=== PATIENT | female | born 1965 | race Caucasian/White ===

== ENCOUNTER 2018-01-03 15:39 | Outpatient (CLI) | payer BC ==
--- NOTE | 2018-01-13 19:14 | Mammography Report ---
DIGITAL SCREENING MAMMOGRAM: 01/03/2018 CLINICAL INDICATION: A 52-year-old with history of benign left excisional biopsy for screening. COMPARISON: Films from [place], [place] dated 05/08/2013. TECHNIQUE: Routine CC and MLO projections were obtained of the breasts. FINDINGS: The breasts demonstrate scattered fibroglandular densities bilaterally. Punctate, typically benign calcifications are present. Postoperative changes in the left periareolar breast are stable. No suspicious masses, clustered microcalcifications, or regions of architectural distortion are identified. IMPRESSION: BENIGN FINDINGS. RECOMMENDATION: Routine annual screening unless otherwise clinically indicated. BIRADS category 2 benign findings. STANDARD QUALIFYING STATEMENTS 1. This examination was reviewed with the aid of Computed-Aided Detection (CAD). 2. A negative or benign imaging report should not delay biopsy if clinically suspicious findings are present. Consider surgical consultation if warranted. More than 5% of cancers are not identified by imaging. 3. Dense breasts may obscure an underlying neoplasm. TD: 01/13/2018 19:13
== END 2018-01-03 15:40 | disposition home or self-care (01) ==
LOC: DI 15:39
DX: Z12.31 Encounter for screening mammogram for malignant neoplasm of breast (principal)
CPT/HCPCS: 77067

== ENCOUNTER 2020-12-04 17:55 | Emergency (ER) | payer BC, OTHER ==
[2020-12-04 18:34] LABS: BILIRUBIN,URINE NEGATIVE (NEGATIVE); CLARITY,URINE CLEAR (CLEAR); GLUCOSE, URINE (UA) NEGATIVE (NEGATIVE); KETONES,URINE (UA) 15 mg/dL (NEGATIVE); LEUKOCYTE ESTERASE, URINE NEGATIVE (NEGATIVE); NITRITE,URINE NEGATIVE (NEGATIVE); OCCULT BLOOD,URINE NEGATIVE (NEGATIVE); PH,URINE 5.5 PH (5.0-7.5); PROTEIN,URINE NEGATIVE (NEGATIVE); UROBILINOGEN,URINE 0.2 (NORMAL) E.U./dL (NORMAL)
[2020-12-04 18:36] LABS: HCG UR QUAL NEGATIVE
[2020-12-04 18:51] LABS: BASOPHILS # (AUTO) 0.1 10^3/uL (0.0-0.1); BASOPHILS % (AUTO) 0.5 %; EOSINOPHILS # (AUTO) 0.1 10^3/uL (0.0-0.7); EOSINOPHILS % (AUTO) 0.8 %; HGB - HEMOGLOBIN 15.1 g/dL (12.0-16.0); LYMPHOCYTES # (AUTO) 2.6 10^3/uL (1.5-3.5); LYMPHOCYTES % (AUTO) 18.3 %; MEAN CORPUSCULAR HEMOGLOBIN 29.5 pg (27.0-31.0); MEAN CORPUSCULAR HGB CONC 33.7 g/dL (32.0-36.0); MEAN CORPUSCULAR VOLUME 87.7 fL (81.0-99.0); MEAN PLATELET VOLUME 9.7 fL (7.9-10.8); MONOCYTES # (AUTO) 1.1 10^3/uL (0.0-1.0); MONOCYTES % (AUTO) 7.3 %; NEUTROPHILS # (AUTO) 10.5 10^3/uL (1.5-6.6); NEUTROPHILS % (AUTO) 72.8 %; PLT - PLATELET COUNT 339 10^3/uL (130-450); RED BLOOD COUNT 5.11 10^6/uL (4.20-5.40); RED CELL DISTRIBUTION WIDTH 12.5 % (12.0-15.0); WHITE BLOOD COUNT 14.4 x10^3/uL (4.8-10.8)
[2020-12-04 19:02] LABS: ALBUMIN 4.5 g/dL (3.2-5.5); ALBUMIN/GLOBULIN RATIO 1.3 (1.0-2.2); BILIRUBIN,TOTAL 0.7 mg/dL (0.2-1.0); CALCIUM 9.7 mg/dL (8.5-10.3); CREATININE 0.6 mg/dL (0.4-1.0)
--- NOTE | 2020-12-04 21:16 | ED Physician Documentation ---
PD HPI ABD PAIN - Stated complaint Stated Complaint: LOWER L ABDOMINAL PX - Chief complaint Chief Complaint: Abd Pain - History obtained from History obtained from: Patient - History of Present Illness Timing - onset: Yesterday Timing - details: Gradual onset, Constant Quality: Pain Location: LLQ Radiation: Other (no radiation) Improved by: Laying still Worsened by: Moving, Palpation Associated symptoms: Nausea, Diarrhea (today), Constipation (yesterday). No: Fever, Vomiting Similar symptoms before: Diagnosis (similar to episode of diverticultis approximately 9 years ago which was treated with PO antibiotics in outpatient setting) Recently seen: Not recently seen - Additional information Additional information: c/o LLQ pain, gradual onset yesterday, constant and steadily progressive.similar to previous episode of diverticulitis Review of Systems Constitutional: denies: Fever, Chills, Sweats Cardiac: reports: Reviewed and negative Respiratory: reports: Reviewed and negative GI: reports: Abdominal Pain, Nausea, Constipation (yesterday), Diarrhea (today). denies: Abdominal Swelling, Vomiting, Bloody / black stool : denies: Dysuria, Frequency PD PAST MEDICAL HISTORY - Past Medical History Past Medical History: Yes GI: Diverticulitis - Past Surgical History Past Surgical History: Yes General: Cholecystectomy - Present Medications Home Medications: Ambulatory Orders Medication Instructions Recorded Confirmed Ciprofloxacin HCl [Cipro] 500 mg PO BID #19 tablet 12/04/20 Ondansetron Odt [Zofran Odt] 4 mg TL Q6H PRN #10 tablet 12/04/20 metroNIDAZOLE [Flagyl] 500 mg PO TID #29 tablet 12/04/20 - Allergies Allergies/Adverse Reactions: Allergies Allergy/AdvReac Type Severity Reaction Status Date / Time Penicillins Allergy Rash Verified 12/04/20 17:59 Sulfa (Sulfonamide Allergy Rash Verified 12/04/20 17:59 Antibiotics) - Social History Does the pt smoke?: No Smoking Status: Never smoker Does the pt drink ETOH?: No Does the pt have substance abuse?: No - Immunizations Immunizations are current?: Yes - POLST Patient has POLST: No PD ED PE NORMAL - Vitals Vital signs reviewed: Yes - General General: Alert and oriented X 3, No acute distress, Well developed/nourished - Cardiac Cardiac: RRR, No murmur - Respiratory Respiratory: No respiratory distress, Clear bilaterally - Abdomen Abdomen: Normal bowel sounds, Soft, Non distended, Other (mild-moderate LLQ tenderness without rebound or guarding) - Derm Derm: Normal color, Warm and dry Results - Vitals Vitals: Vital Signs - 24 hr 12/04/20 12/04/20 12/04/20 17:59 19:34 21:42 Temperature 37.1 C 36.9 C 36.4 C L Heart Rate 99 98 73 Respiratory 18 18 18 Rate Blood Pressure 131/78 H 134/87 H 139/80 H O2 Saturation 97 97 100 Oxygen O2 Source Room air - Labs Labs: Laboratory Tests 12/04/20 12/04/20 12/04/20 18:15 18:43 18:43 WBC 14.4 H RBC 5.11 Hgb 15.1 Hct 44.8 MCV 87.7 MCH 29.5 MCHC 33.7 RDW 12.5 Plt Count 339 MPV 9.7 Neut # (Auto) 10.5 H Lymph # (Auto) 2.6 [place] # (Auto) 1.1 H Eos # (Auto) 0.1 Baso # (Auto) 0.1 Absolute Nucleated RBC 0.00 Nucleated RBC % 0.0 Sodium 142 Potassium 3.9 Chloride 102 Carbon Dioxide 25 Anion Gap 15.0 H BUN 16 Creatinine 0.6 Estimated GFR (MDRD) 105 Glucose 121 H Calcium 9.7 Total Bilirubin 0.7 AST 11 ALT 16 Alkaline Phosphatase 76 Total Protein 8.0 Albumin 4.5 Globulin 3.5 Albumin/Globulin Ratio 1.3 Lipase 40 Urine Color YELLOW Urine Clarity CLEAR Urine pH 5.5 Ur Specific [place] >=1.030 H Urine Protein NEGATIVE Urine Glucose (UA) NEGATIVE Urine Ketones 15 H Urine Occult Blood NEGATIVE Urine Nitrite NEGATIVE Urine Bilirubin NEGATIVE Urine Urobilinogen 0.2 (NORMAL) Ur Leukocyte Esterase NEGATIVE Ur Microscopic Review NOT INDICATED Urine Culture Comments NOT INDICATED Urine HCG, Qual NEGATIVE PD MEDICAL DECISION MAKING - ED course Complexity details: reviewed results, re-evaluated patient, considered differential, d/w patient ED course: discussed consideration for CT A/P. patient says the symptoms are very similar to previous episode of diverticulitis, denies fever (afebrile in ED as well), LLQ TTP on exam but no rebound nor guarding, and mild leukocytosis (14.4); I recommended empiric treatment for likely diverticulitis but defer CT A/P for now, as no elements of H+P to suggest abscess or perforation. CT can be reconsidered if symptoms persist or worsen, in which case she is to return to ED for reevaluation. Patient expresses understanding of, and agreement and comfort with, this plan Departure - Departure Disposition: 01 Home, Self Care Clinical Impression: Abdominal pain Qualifiers: Abdominal location: left lower quadrant Qualified Code(s): R10.32 - Left lower quadrant pain Condition: Good Instructions: ED Diverticulitis Follow-Up: Cristhian Meade MD [Primary Care Provider] - (3-5 days) Prescriptions: Ciprofloxacin HCl [Cipro] 500 mg PO BID #19 tablet metroNIDAZOLE [Flagyl] 500 mg PO TID #29 tablet Ondansetron Odt [Zofran Odt] 4 mg TL Q6H PRN #10 tablet PRN Reason: Nausea / Vomiting Discharge Date/Time: 12/04/20 21:42
[2020-12-04] MEDS ORDERED: CIPROFLOXACIN 250 MG TABLET PO STA (21:30)
[2020-12-04] MEDS ORDERED: metroNIDAZOLE 250 MG TABLET PO STA (21:30)
[2020-12-04 21:44] VITALS: BP 139/80
== END 2020-12-04 21:42 | disposition home or self-care (01) ==
LOC: ED 17:55
DX: R10.32 Left lower quadrant pain (principal)
CPT/HCPCS: 36415; 80053; 81003; 81025; 83690; 85025; 99283; 99284; A9270; 81001; 87086

== ENCOUNTER 2021-01-21 17:52 | Outpatient (CLI) | payer BC ==
--- NOTE | 2021-01-22 09:56 | Ultrasound Report ---
PROCEDURE: Pelvic w/Transvaginal INDICATIONS: HX OF OVARIAN CYST TECHNIQUE: Real-time scanning was performed of the pelvic organs, with image documentation. Additional endovagi nal scanning was necessary due to incomplete visualization of the adnexal and endometrial structures by transabdominal scanning. COMPARISON: None. FINDINGS: No pathologic free abdominal or pelvic fluid. Uterus: Uterus is prominent in size at 10.5 x 4.6 x 5.9 cm. The endometrium measures 8.8 mm in comb ined thickness. 2 intramural fibroids, largest measuring 1.5 cm. Ovaries: Right ovary measures 1.9 x 1.5 x 1.3 cm with volume estimated at 1.8 cc. Left ovary measure s 2.6 x 2.4 x 2.5 cm, volume estimated at 7.9 cc. Simple, unilocular 17 mm left ovarian cyst. IMPRESSION: Prominence of the uterine volume and there are 2 intramural fibroids, largest measuring up to 1.5 cm. Simple left ovarian cyst measuring 17 mm. Reviewed by: PORSHA Tapia on 01/22/2021 9:55 AM PST Approved by: Zay Russell MD on 01/22/2021 9:55 AM PST Station ID: [id number]
== END 2021-01-21 17:53 | disposition home or self-care (01) ==
LOC: DI 17:52
PROVIDERS: ATTEND Surgery
DX: N83.202 Unspecified ovarian cyst, left side (principal); D25.1 Intramural leiomyoma of uterus; Z87.42 Personal history of other diseases of the female genital tract

== ENCOUNTER 2022-06-09 14:54 | Outpatient (CLI) | payer BC ==
--- NOTE | 2022-06-10 16:14 | Mammography Report ---
BILATERAL DIGITAL SCREENING MAMMOGRAM 3D/2D: 06/09/2022 CLINICAL: Routine screening. Comparison is made to exam dated: 01/03/2018 mammogram - Merged with [facility]. There are sca ttered fibroglandular elements in both breasts. There is a possible asymmetry in the right breast middle depth medial region seen on the craniocaudal view only. No other significant masses, calcifications, or other findings are seen in either breast. IMPRESSION: INCOMPLETE: NEEDS ADDITIONAL IMAGING EVALUATION The possible asymmetry in the right breast resembles fibroglandular tissue and is indeterminate. Additional views with possible ultrasound are recommended. Based on the Tyrer Cuzick model (a risk assessment model) the patients lifetime risk is 11.7% and he r 10 year risk is 3.6%. According to the ACR, ACS, and NCCN guidelines, an annual breast MRI exam oscar ng with mammogram is recommended if the patients lifetime risk is 20% or greater. This exam was interpreted at Station ID: [id number]. NOTE: For mammograms, a report in lay terms will be sent to the patient. Approximately 15% of breast malignancies will not be visualized mammographically. In the management of a palpable breast mass, a negative mammogram must not discourage biopsy of a clinically suspicious lesion. Electronically Signed By: Behzad Peters M.D. slc/:06/10/2022 09:54:08 ACR BI-RADS Category 0: Incomplete 3340F PARENCHYMAL PATTERN: (A) - The breast(s) demonstrate(s) scattered fibroglandular densities. BI-RADS CATEGORY: (0) - 0 Mammo and [place] [id number] Immediate follow-up LATERALITY: (B)
== END 2022-06-09 14:55 | disposition home or self-care (01) ==
LOC: DI.S 14:54
PROVIDERS: ATTEND Internal Medicine
DX: Z12.31 Encounter for screening mammogram for malignant neoplasm of breast (principal); R92.8 Other abnormal and inconclusive findings on diagnostic imaging of breast

== ENCOUNTER 2022-07-14 08:39 | Outpatient (CLI) | payer BC ==
[~2022-07-14 08:39] MED LIST: LIDOCAINE 1%-EPI 1:100000 20 ML MDV ONE; lidocaine 1% 20 ML MDV ONE
[2022-07-14] MEDS ORDERED: LIDOCAINE 1%-EPI 1:100000 20 ML MDV SUBQ ONE (10:20)
[2022-07-14] MEDS ORDERED: lidocaine 1% 20 ML MDV SUBQ ONE (10:21)
--- NOTE | 2022-07-22 10:29 | Mammography Report ---
UNILATERAL RIGHT DIGITAL DIAGNOSTIC MAMMOGRAM: 07/14/2022 CLINICAL: Post right breast ultrasound biopsy clip placement imaging. Comparison is made to exams dated: 07/02/2022 mammogram, 06/09/2022 mammogram, and 01/03/2018 mammogram - [facility]. There are scattered areas of fibroglandular density in the right breast (category b / 25%-50% glandul ar tissue). There is a marker clip in the appropriate position in the right breast at 8 o'clock anterior depth 2 cm from the nipple. This marker clip placement is at the biopsy site. IMPRESSION: POST PROCEDURE MAMMOGRAM FOR MARKER PLACEMENT There was a successful marker clip placement in the right breast anterior depth. Based on the Tyrer Cuzick model (a risk assessment model) the patients lifetime risk is 9.3% and her 10 year risk is 2.8%. According to the ACR, ACS, and NCCN guidelines, an annual breast MRI exam emily g with mammogram is recommended if the patients lifetime risk is 20% or greater. This exam was interpreted at Station ID: [id number]. NOTE: For mammograms, a report in lay terms will be sent to the patient. Approximately 15% of breast malignancies will not be visualized mammographically. In the management of a palpable breast mass, a negative mammogram must not discourage biopsy of a clinically suspicious lesion. Electronically Signed By: Martinez Rincon M.D. jr/:07/22/2022 08:45:45 ACR BI-RADS Category Post-procedure mammogram for marker placement PARENCHYMAL PATTERN: (A) - The breast(s) demonstrate(s) scattered fibroglandular densities. BI-RADS CATEGORY: () - Unspecified - other recall n/a LATERALITY: (B)
--- NOTE | 2022-07-23 12:07 | Ultrasound Report ---
ULTRASOUND GUIDED BIOPSY RIGHT BREAST USING VACUUM DEVICE WITH MARKING DEVICE INSERTED AND POST DIGIT AL MAMMOGRAPHIC IMAGIN07/14/2022 CLINICAL: Right breast mass. PATIENT CONSENT: Risks (minor bleeding, infection, vasovagal reaction and repeat procedure), benefits and alternatives were explained to the patient and written informed consent was obtained. Correlation is made to exams dated: 07/02/2022 ultrasound, 07/02/2022 mammogram, 06/09/2022 mammogram, and 01/03/2018 mammogram - [facility]. An ultrasound guided biopsy using real-time ultrasound was performed for the mass located in the righ t breast at 9 o'clock anterior depth 2 cm from the nipple. This was described on the previous ultras ound report. The skin was prepped in the usual manner. Local anesthetic was administered to the access site. A s kin ryan was made in the breast. The abnormality was approached from the lateral aspect. A 12 gauge biopsy needle was placed adjacent to the abnormality under ultrasound guidance. Once the needle was documented to be in the correct location, three specimens were obtained using the [employer] syste m. A clip was inserted into the biopsy cavity. A skin closure strip and a sterile dressing were gigi lied to the access site. Post procedure digital mammographic imaging demonstrates the location device at the targeted area and partial removal of the abnormality. The specimens were sent to the laboratory for pathological anal ysis. IMPRESSION: ULTRASOUND GUIDED BIOPSY BENIGN Ultrasound guided biopsy of the mass in the right breast at 9 o'clock anterior depth 2 cm from the ni pple was successful with no apparent post procedure complications. Pathology indicates benign finding. Pathology results are discordant with imaging findings. Re-biopsy is recommended. This exam was interpreted at Station ID: [id number]. Martinez Kim M.D., jr,lc/:07/23/2022 10:55:37 BI-RADS CATEGORY: () - Biopsy [id number] Immediate follow-up LATERALITY: (R)
== END 2022-07-14 08:40 | disposition home or self-care (01) ==
LOC: DI 08:39
PROVIDERS: ATTEND Internal Medicine
DX: N63.15 Unspecified lump in the right breast, overlapping quadrants (principal); N64.59 Other signs and symptoms in breast
CPT/HCPCS: 19083

== ENCOUNTER 2023-07-28 07:34 | Emergency (ER) | payer BC ==
[2023-07-28 07:57] VITALS: O2SAT 97
[2023-07-28] MEDS ORDERED: DROPERIDOL 5 MG/2 ML VIAL IVP STA (09:46)
[2023-07-28] MEDS ORDERED: SODIUM CHLORIDE 0.9% 1,000 ML IV STA (09:46)
[2023-07-28 10:10] LABS: ALBUMIN 4.2 g/dL (3.2-5.5); ALBUMIN/GLOBULIN RATIO 1.4 (1.0-2.2); BILIRUBIN,TOTAL 0.5 mg/dL (0.2-1.0); CALCIUM 9.1 mg/dL (8.5-10.3); CREATININE 0.5 mg/dL (0.6-1.3); TOTAL PROTEIN 7.2 g/dL (6.4-8.9)
[2023-07-28] MEDS ORDERED: KETOROLAC 30 MG/ML VIAL IVP STA (10:24)
[2023-07-28] MEDS ORDERED: MECLIZINE 12.5 MG TABLET PO STA (12:17)
--- NOTE | 2023-07-28 13:08 | ED Physician Documentation ---
History of Present Illness - Stated complaint Stated Complaint: VOMIT/VERTIGO - Chief complaint Chief Complaint: Neuro - History obtained from History obtained from: Patient - Additonal information Additional information: The patient comes to the emergency department chief complaint of vertigo. She has a history of this previously and states that her symptoms have usually just resolved on their own. She has never come to the doctor for this. She states that this morning, she went to sit up from bed and the sudden positional change set off a sense of spinning. She states that if she holds still, she does not feel vertigo but if she even turns her head to one side or the other she becomes very dizzy and nauseated. No focal neurologic deficits. She states she does have tinnitis. PD PAST MEDICAL HISTORY - Past Medical History GI: Diverticulitis - Past Surgical History Past Surgical History: Yes General: Cholecystectomy - Present Medications Home Medications: Ambulatory Orders Medication Instructions Recorded Confirmed Meclizine HCl 50 mg PO Q6H PRN #30 tab 07/28/23 - Allergies Allergies/Adverse Reactions: Allergies Allergy/AdvReac Type Severity Reaction Status Date / Time Penicillins Allergy Rash Verified 07/28/23 10:42 Sulfa (Sulfonamide Allergy Rash Verified 07/28/23 10:42 Antibiotics) - Social History Does the pt smoke?: No Smoking Status: Never smoker Does the pt drink ETOH?: No Does the pt have substance abuse?: No - Immunizations Immunizations are current?: Yes - POLST Patient has POLST: No PD ED PE NORMAL - Vitals Vital signs reviewed: Yes - General General: Alert and oriented X 3, No acute distress, Well developed/nourished - HEENT HEENT: Atraumatic, PERRL, EOMI, Moist mucous membranes - Neck Neck: Supple, no meningeal sign - Cardiac Cardiac: RRR, No murmur - Respiratory Respiratory: No respiratory distress, Clear bilaterally - Abdomen Abdomen: Soft, Non tender, Non distended - Derm Derm: Normal color, Warm and dry, No rash - Extremities Extremities: No deformity - Neuro Neuro: Alert and oriented X 3, 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, No motor deficit, No sensory deficit, Normal speech - Psych Psych: Normal mood, Normal affect Results - Vitals Vitals: Vital Signs - 24 hr 07/28/23 07/28/23 07:51 10:59 Temperature 37.1 C Heart Rate 68 70 Respiratory 20 18 Rate Blood Pressure 121/81 H 121/80 O2 Saturation 97 97 Oxygen O2 Source Room air - Labs Labs: Laboratory Tests 07/28/23 09:51 Sodium 136 Potassium 4.0 Chloride 107 Carbon Dioxide 23 Anion Gap 6.0 BUN 11 Creatinine 0.5 L Estimated GFR (MDRD) 128 Glucose 131 H Calcium 9.1 Total Bilirubin 0.5 AST 15 ALT 27 Alkaline Phosphatase 75 Total Protein 7.2 Albumin 4.2 Globulin 3.0 Albumin/Globulin Ratio 1.4 Lipase 19 PD Medical Decision Making - ED course Complexity details: reviewed results, re-evaluated patient, considered differential, d/w patient ED course: The patient's lab work, including CBC and ER abdominal panel, was normal. She was given a liter of 0.9 normal saline as well as droperidol and Toradol, after which she was feeling much better and was able to complete a road test in the emergency department. She was given an oral dose of meclizine. I felt she was stable for discharge home. The patient's symptoms are very much consistent with benign positional vertigo and consistent with prior episodes, though this episode is little worse. We have discussed symptomatic management at home as well as the usual locations for follow-up and return. Departure - Departure Disposition: 01 Home, Self Care Clinical Impression: Benign positional vertigo Qualifiers: Laterality: unspecified laterality Qualified Code(s): H81.10 - Benign paroxysmal vertigo, unspecified ear Condition: Stable Instructions: ED BPV Vertigo Prescriptions: Meclizine HCl 50 mg PO Q6H PRN #30 tab PRN Reason: Vertigo Comments: Your prescriptions have been electronically transmitted to the [facility] in [place]. Your labs look good. Please follow-up with your primary doctor as needed.
[2023-07-28 13:33] VITALS: BP 132/85
== END 2023-07-28 13:29 | disposition home or self-care (01) ==
LOC: ED 07:34
DX: H81.10 Benign paroxysmal vertigo, unspecified ear (principal)
CPT/HCPCS: 36415; 80053; 83690; 96374; 99283; A9270